=== PATIENT | male | born 1975 | race Caucasian/White ===

== ENCOUNTER 2020-07-05 11:05 | Observation (INO) | payer BC ==
[2020-07-04 13:51] VITALS: BMI 28.1
[~2020-07-05 11:05] MED LIST: DEXAMETHASONE SOD PHOSPHATE 10 MG/ML 1 ML VIAL IV ONE; LIDOCAINE 1% (10MG/ML) FOR IV START INTRADERMA PRN; ONDANSETRON 4 MG/2 ML VIAL IVP ONE; Pre Op ABX Message 1 EACH MISC MISCELLANE ONE; SCOPOLAMINE 1.5MG/72HR PATCH TRANSDERM ONE
[2020-07-05] MEDS: LACTATED RINGERS 1,000 ML IV SCH (12:11)
[2020-07-05] MEDS ORDERED: LIDOCAINE 1% INJ 10MG/ML (20 ML MDV) ONE (12:29)
[2020-07-05] MEDS ORDERED: GLYCOPYRROLATE 0.2 MG/ML 2 ML VIAL ONE (12:29)
[2020-07-05] MEDS ORDERED: PROPOFOL 10 MG/ML 20 ML VIAL IV ONE (12:29)
[2020-07-05] MEDS ORDERED: MIDAZOLAM 2 MG/2 ML VIAL ONE (12:29)
[2020-07-05] MEDS ORDERED: fentaNYL (PF) 50 MCG/ML 2 ML AMP ONE (12:29)
[2020-07-05] MEDS ORDERED: ePHEDrine SULFATE/0.9% NACL/PF 50 MG/5 ML SYRINGE IV ONE (12:29)
[2020-07-05] MEDS ORDERED: VANCOMYCIN IV PER PHARMACY 1 EACH MISC MISCELLANE STA (12:44)
[2020-07-05] MEDS ORDERED: VANCOMYCIN 1,750 MG in SODIUM CHLORIDE 0.9% 500 ML 500 ML IVPB STA (12:50)
[2020-07-05] MEDS ORDERED: NALOXONE 0.4 MG/ML 1 ML VIAL IV PRN (13:30)
[2020-07-05] MEDS ORDERED: traMADol 50 MG TAB PO PRN (13:30)
[2020-07-05] MEDS ORDERED: ONDANSETRON 4 MG/2 ML VIAL IVP PRN (13:30)
[2020-07-05] MEDS ORDERED: MELATONIN 3 MG TABLET PO PRN (13:30)
[2020-07-05] MEDS ORDERED: MORPHINE SULFATE 4 MG/ML SYRINGE IV PRN (13:30)
[2020-07-05] MEDS ORDERED: PIPERACILLIN-TAZOBACTAM 3.375 GM in SODIUM CHLORIDE 0.9% 100 ML IVPB SCH (13:45)
[2020-07-05] MEDS ORDERED: VANCOMYCIN IV PER PHARMACY 1 EACH MISC MISCELLANE SCH (13:45)
--- NOTE | 2020-07-05 13:52 | P.OP ---
Date of Procedure: 07/05/20 Procedure(s) Performed: PREOPERATIVE DIAGNOSES: 1. Pyogenic flexor tenosynovitis, third finger POSTOPERATIVE DIAGNOSES: 1. Pyogenic flexor tenosynovitis, third finger PROCEDURES PERFORMED: 1. Open irrigation flexor tendon sheath with run through irrigation, third finger ANESTHESIA: Local with IV sedation PSYCH SPECIALIST: . None COMPLICATIONS: None ESTIMATED BLOOD LOSS: 1 mL. DISPOSITION: To post-anesthesia care unit INDICATIONS: . Tobi is a 42-year-old male with a history of third finger pyogenic flexor tenosynovitis due to a traumatic injury approximately 4 days ago. This has been increasingly very painful and bothersome. He is only minimally better after initial treatment with oral antibiotics. Kanavel's signs are now present and I recommended open treatment of the flexor tendon sheath with flow through irrigation. The patient has signed the consent form and wishe s to proceed with surgery after full explanation of the risks and potential complications. I have explained these as being inclusive of, but not limited to: Bleeding, infection, scarring, discomfort, stiffness, blood vessel and/or nerve damage, continued infection, flexion contracture, and other risks. PROCEDURE: After appropriate consent was obtained, the patient was taken to the operating room placed in the supine position. Anesthesia was initiated, and after confirmation of adequate anesthesia, the patient was carefully positioned. Care was taken to make sure that all pressure points were adequately padded. Prepping and draping were completed in the usual aseptic fashion using Hibiclens. Timeout was called, confirming patient identity, side, procedure, and no administration of antibiotics until after culture was taken. The limb was exsanguinated with an Esmarch bandage and the tourniquet was inflated to 200 mmHg. Total tourniquet time for the case was approximately 25 minutes. The hand was positioned on a padded aluminum frame. Chevron/zigzag type incision approximately 6 cm in total length was created over the distal palmar crease in line with the third finger. The incision was taken down just through dermis, and then skin hooks were applied and blunt dissection was then carried down to the tendon sheath. The proximal portion of the flexor tendon was exposed in the area of previous penetration from traumatic wound was inspected and explored. No foreign bodies were noted. Tendon sheath was exposed medially and laterally and retractors were applied to retract neurovascular structures. The proximal extent of the A1 mg was noted and partially released under direct visualization using a number 15 blade. Pus from the tendon sheath was immediately noted. Cultures were taken. There was no significant underlying tendon damage. Counterincision was then performed distally at the DIP joint with a transverse incision across the crease. Incision was then deepened down to the tendon sheath which was incised medial to lateral which also revealed pus. Flow through irrigation was performed using a 14-gauge Angiocath from proximal to distal with good flow noted through the distal incision. Approximately 250 mL of fluid was irrigated through with dilute solution of chlorhexidine used initially, followed by flow through of plain sterile saline. Chevron incision was then closed loosely using interrupted 4-0 nylon sutures. Dressing was applied after irrigation and use of bipolar electrocautery for hemostasis. Resting volar splint was applied in a safe position for the hand with slight wrist extension and pressure was held over the incision for 3 minutes for additional hemostasis during splint hardening. Patient tolerated the procedure well and taken to recovery room in stable condition. Sponge and needle counts were correct.
[2020-07-05] MEDS: HYDROmorphone 0.5 MG/0.5 ML SYRINGE IVP PRN ×6 (13:56→14:13)
[2020-07-05 16:09] LABS: African American GFR (CKD) >90 (>60 ml/min/1.73 sqM); Non-African American GFR(CKD) 81 (>60 ml/min/1.73 sqM)
[2020-07-05] MEDS: VANCOMYCIN 1,750 MG in SODIUM CHLORIDE 0.9% 500 ML 500 ML IVPB SCH (22:35)
[2020-07-05] MEDS: CEFEPIME 2 GM in SODIUM CHLORIDE 0.9% 100 ML IVPB SCH (22:35)
[2020-07-06] MEDS: VANCOMYCIN 1,750 MG in SODIUM CHLORIDE 0.9% 500 ML 500 ML IVPB SCH ×3 (05:34→21:08)
[2020-07-06] MEDS: LACTATED RINGERS 1,000 ML IV SCH (06:47)
[2020-07-06 08:15] LABS: African American GFR (CKD) >90 (>60 ml/min/1.73 sqM); Non-African American GFR(CKD) 83 (>60 ml/min/1.73 sqM)
--- NOTE | 2020-07-06 08:15 | P.CONS ---
History of Present Illness - Reason for Consult Consult date: 07/05/20 Right third finger tenosynovitis Requesting physician: Roly Navas - Chief Complaint Right third finger pain redness x 2 days - History of Present Illness Patient is a 45-year-old male who did have injury to his right third finger while doing dishes a few days ago patient mention there was a cut at 2 location on the right third finger that started to bleed after he did have the injury patient said that he did that returned under the water and has been doing some local care however yesterday he noticed his third finger to be coming more swollen right and painful patient described the pain to be throbbing intensity almost 7-8 out of 10 and no radiation patient did have some chills but denies high-grade fever, with these symptoms the patient was evaluated by orthopedics, patient subsequently was taken to the OR with concern for pyogenic flexor tenosynovitis third finger. Diagnoses was the same patient is status post open irrigation flexor tendon sheath with a running 2 irrigation culture has been obtained which are currently pending patient was started on vancomycin and Zosyn has been admitted to the hospital infectious disease was consulted for further management of antibiotic therapy Review of Systems Positive point has been mentioned in the HPI rest of the systems are negative Past Medical History Past Medical History: GERD/Reflux, Osteoarthritis (OA), Sleep Apnea/CPAP/BIPAP Additional Past Medical History / Comment(s): injury 3rd digit rt hand,mild case of sleep apnea-no cpap yet, hx "COLLAPSED LUNG" IN HIS 20'S. BRADYCARDIA. History of Any Multi-Drug Resistant Organisms: None Reported Additional Past Surgical History / Comment(s): CHEST TUBE FOR "COLLAPSED LUNG". LOWER BACK INJECTIONS. Past Anesthesia/Blood Transfusion Reactions: No Reported Reaction, Motion Sickness Smoking Status: Never smoker - Past Family History Father Family Medical History: Hyperlipidemia Mother Family Medical History: Respiratory Disorder Additional Family Medical History / Comment(s): PSYCHIATRIC HISTORY. POLIO. Medications and Allergies Home Medications Medication Instructions Recorded Confirmed Type FLUoxetine HCL 40 mg PO HS 09/09/15 07/05/20 History Omeprazole [PriLOSEC] 40 mg PO DIRECTED PRN 09/09/15 07/05/20 History clonazePAM [KlonoPIN] 1.5 mg PO HS 09/09/15 07/05/20 History Acetaminophen [Tylenol Extra 500 - 1,000 mg PO Q6H PRN 07/04/20 07/05/20 History Strength] Sulfamethoxazole/Trimethoprim 1 each PO BID 07/04/20 07/05/20 History [Bactrim DS 800-160 mg] Allergies Allergy/AdvReac Type Severity Reaction Status Date / Time codeine AdvReac Severe Nausea & Verified 07/05/20 11:56 Vomiting Physical Exam Vitals: Vital Signs Temp Pulse Resp BP Pulse Ox 07/05/20 14:15 57 L 16 126/71 97 07/05/20 14:00 52 L 16 121/70 95 07/05/20 13:45 65 16 110/59 95 07/05/20 13:36 97.1 F L 61 12 116/70 95 07/05/20 12:09 98.6 F 57 L 16 122/60 99 Intake and Output 07/04/20 07/05/20 07/05/20 22:59 06:59 14:59 Intake Total 1000 Output Total 1 Balance 999 Intake: IV 1000 Output: Estimated Blood Loss 1 Other: Weight 112.4 kg GENERAL DESCRIPTION: Middle-aged male lying in bed, no distress. No tachypnea or accessory muscle of respiration use. HEENT: Shows Pallor , no scleral icterus. Oral mucous membrane is dry. No pharyngeal erythema or thrush NECK: Trachea central, no thyromegaly. LUNGS: Unlabored breathing. Clear to auscultation anteriorly. No wheeze or crackle. HEART: S1, S2, regular rate and rhythm. No loud murmur ABDOMEN: Soft, no tenderness , guarding or rigidity, no organomegaly EXTREMITIES: Right finger is currently dressed in OR dressing no drainage on the dressing SKIN: No rash, no masses palpable. NEUROLOGICAL: The patient is awake, alert, oriented x3, mood and affect normal. Results CBC & Chem 7: 07/05/20 15:47 Assessment and Plan Assessment: 1- patient presented to the hospital with right third finger pain swelling and redness started after the patient did have injury a few days ago with a cut from the dictations likely concerning for a gram-positive skin serjio underlying gram- negative infection less likely but not entirely excluded (1) Abscess of right hand including fingers Current Visit: Yes Status: Acute Code(s): L02.511 - CUTANEOUS ABSCESS OF RIGHT HAND SNOMED Code(s): 47762455844779977 Plan: 1- Vancomycin pharmacy to dose target trough of 15 while watching kidney function and Vanco trough closely 2-discontinue Zosyn and cefepime to cover for gram-negative 3-CBC BMP a sed rate and CRP We will follow on clinical condition and cultures to further adjust medication if needed Thank you for this consultation will follow this patient with you Time with Patient: Greater than 30
[2020-07-06] MEDS: CEFEPIME 2 GM in SODIUM CHLORIDE 0.9% 100 ML IVPB SCH ×2 (08:52→21:09)
[2020-07-06 08:54] LABS: Basophils % (A) 0 %; Eosinophils % (A) 0 %; HCT 42.7 % (39.0-53.0); HGB 14.2 gm/dL (13.0-17.5); Lymphocytes # (A) 1.4 k/uL (1.0-4.8); Lymphocytes % (A) 12 %; MCHC 33.2 g/dL (31.0-37.0); MCV 93.3 fL (80.0-100.0); Mean Platelet Volume 9.3; Monocytes # (A) 0.7 k/uL (0-1.0); Monocytes % (A) 6 %; Neutrophils # (A) 9.6 k/uL (1.3-7.7); Neutrophils % (A) 81 %; Platelet Count 155 k/uL (150-450); RBC 4.58 m/uL (4.30-5.90); RDW 12.7 % (11.5-15.5); WBC 11.9 k/uL (3.8-10.6)
[2020-07-06 09:01] LABS: African American GFR (CKD) >90 (>60 ml/min/1.73 sqM); Non-African American GFR(CKD) 83 (>60 ml/min/1.73 sqM)
[2020-07-06 09:09] LABS: Anion Gap 5 mmol/L; Blood Urea Nitrogen 14 mg/dL (9-20); Calcium 9.1 mg/dL (8.4-10.2); Carbon Dioxide 25 mmol/L (22-30); Chloride 106 mmol/L (98-107); Glucose 107 mg/dL (74-99); Potassium 4.6 mmol/L (3.5-5.1); Sodium 136 mmol/L (137-145)
[2020-07-06 09:29] LABS: C Reactive Protein 29.7 mg/L (<10.0)
[2020-07-06 09:42] LABS: Erythrocyte Sedimentation Rate 11 mm/hr (0-15)
--- NOTE | 2020-07-06 09:58 | P.PN ---
Subjective Progress Note Date: 07/06/20 This is a 45-year-old male who is status post I&D of the third finger for pyogenic flexor tenosynovitis. This is postoperative day #1 and patient is seen and evaluated at bedside. Patient states that his pain and swelling have greatly improved. Patient denies any new symptoms today. Objective - Vital Signs Vital signs: Vital Signs Temp 98.1 F 07/06/20 08:47 Pulse 51 L 07/06/20 08:47 Resp 16 07/06/20 08:47 BP 114/72 07/06/20 08:47 Pulse Ox 97 07/06/20 08:47 Intake & Output 07/05/20 07/06/20 07/06/20 18:59 06:59 18:59 Intake Total 1420 480 Output Total 1 Balance 1419 480 Weight 112.4 kg Intake: IV 1000 Oral 420 480 Output: Estimated Blood Loss 1 Other: Voiding Method Toilet Toilet # Voids 1 - Exam On exam patient is resting comfortably in bed in no acute distress. Patient is alert and oriented 3. Surgical dressing is removed. Sutures are intact. There is a moderate amount of bloody drainage on the dressing, but there is no active drainage. There is no erythema. There is mild swelling of the right hand. The right upper extremity is warm and well perfused. Sensation intact. Neurovascular status and circulatory status are intact. - Labs CBC & Chem 7: 07/06/20 07:50 07/06/20 07:50 Labs: Abnormal Lab Results - Last 24 Hours (Table) 07/06/20 07/06/20 Range/Units 07:50 07:50 WBC 11.9 H (3.8-10.6) k/uL Neutrophils # 9.6 H (1.3-7.7) k/uL Sodium 136 L (137-145) mmol/L Glucose 107 H (74-99) mg/dL C-Reactive Protein 29.7 H (<10.0) mg/L Microbiology - Last 24 Hours (Table) 07/05/20 13:17 Gram Stain - Preliminary Hand - Right Wound Culture - Preliminary 07/05/20 13:17 Anaerobic Culture - Preliminary Hand - Right Assessment and Plan (1) Status post incision and drainage Current Visit: Yes Status: Acute Code(s): Z98.890 - OTHER SPECIFIED POSTPROCEDURAL STATES SNOMED Code(s): 204784761 (2) Flexor tenosynovitis of finger Current Visit: Yes Status: Acute Code(s): M65.9 - SYNOVITIS AND TENOSYNOVITIS, UNSPECIFIED SNOMED Code(s): 779936883 (3) Abscess of right hand including fingers Current Visit: Yes Status: Acute Code(s): L02.511 - CUTANEOUS ABSCESS OF RIGHT HAND SNOMED Code(s): 60694410324299200 Plan: 1. Continue IV antibiotics per infectious disease. 2. Cultures are pending. 3. Recommend heat and elevation for the right upper extremity. 4. Consult occupational therapy for thermoplastic removable resting hand splint . 5. Continue routine postoperative care and pain control. 6. Discharge planning once antibiotics are determined by infectious disease.
[2020-07-06] MEDS ORDERED: PANTOPRAZOLE 40 MG TABLET PO PRN (15:02)
--- NOTE | 2020-07-06 19:42 | PN ---
PROGRESS NOTE DATE OF SERVICE: 07/06/2020 REASON FOR FOLLOWUP: Right 3rd finger infection. INTERVAL HISTORY: The patient is currently afebrile. The patient is feeling better, breathing comfortably. Overall pain and discomfort to the right 3rd finger, more when he keeps his hand down and with elevation the pain improves. No chest pain. No cough. No abdominal pain. No diarrhea. PHYSICAL EXAMINATION: Blood pressure 117/64 with a pulse of 53, temp is 97.6, he is 97% on room air. General description is a middle-aged male up in the bed in no distress. Respiratory system: Unlabored breathing, clear to auscultation anteriorly. Heart S1, S2. Regular rate and rhythm. Abdomen is soft, nontender. Right 3rd finger is currently dressed. No obvious drainage on the dressing. LABS: Hemoglobin 14.8, white count 11.9. CRP 29.7. Cultures currently pending. DIAGNOSTIC IMPRESSION AND PLAN: Patient with right 3rd finger injury from a glass cut with secondary cellulitis status post I and D. Cultures pending. Patient is covered with cefepime and vancomycin to continue while waiting for the culture to finalize. Continue supportive care. MMODL / IJN: [id number] /
[2020-07-06] MEDS ORDERED: clonazePAM 1 MG TAB PO SCH (21:00)
[2020-07-06] MEDS ORDERED: clonazePAM 0.5 MG TAB PO SCH (21:00)
[2020-07-06] MEDS ORDERED: FLUoxetine HCL 20 MG CAP PO SCH (21:00)
[2020-07-07] MEDS ORDERED: VANCOMYCIN TROUGH DUE 1 EACH MISC MISCELLANE ONE (04:00)
[2020-07-07 04:45] LABS: African American GFR (CKD) >90 (>60 ml/min/1.73 sqM); Non-African American GFR(CKD) 83 (>60 ml/min/1.73 sqM)
[2020-07-07] MEDS: VANCOMYCIN 1,750 MG in SODIUM CHLORIDE 0.9% 500 ML 500 ML IVPB SCH ×2 (05:28→12:34)
[2020-07-07 08:40] VITALS: RESP 16
[2020-07-07] MEDS: CEFEPIME 2 GM in SODIUM CHLORIDE 0.9% 100 ML IVPB SCH (08:49)
[2020-07-07] MEDS: LACTATED RINGERS 1,000 ML IV SCH (08:50)
--- NOTE | 2020-07-07 10:58 | P.PN ---
Subjective Progress Note Date: 07/07/20 This is a 45-year-old male who is status post I&D of the third finger for pyogenic flexor tenosynovitis. This is postoperative day #2 and patient is seen and evaluated at bedside. Patient states that his pain and swelling continued to improve. Patient denies any new symptoms today. Objective - Vital Signs Vital signs: Vital Signs Temp 98.0 F 07/07/20 08:39 Pulse 40 L 07/07/20 08:39 Resp 16 07/07/20 08:39 BP 141/80 07/07/20 08:39 Pulse Ox 96 07/07/20 03:00 Intake & Output 07/06/20 07/07/20 07/07/20 18:59 06:59 18:59 Intake Total 480 Balance 480 Intake: Oral 480 Other: Voiding Method Toilet # Voids 2 2 - Exam On exam patient is resting comfortably in bed in no acute distress. Patient is alert and oriented 3. Splint and dressing are removed. Sutures are intact. There is minimal drainage noted on the dressing. No active drainage. There is no erythema. There is minimal swelling of the right hand. The right upper extremity is warm and well perfused. Sensation intact. Neurovascular status and circulatory status are intact. - Labs CBC & Chem 7: 07/06/20 07:50 07/07/20 04:24 Labs: Microbiology - Last 24 Hours (Table) 07/05/20 13:17 Gram Stain - Final Hand - Right Wound Culture - Final Assessment and Plan (1) Status post incision and drainage Current Visit: Yes Status: Acute Code(s): Z98.890 - OTHER SPECIFIED POSTPROCEDURAL STATES SNOMED Code(s): 177551649 (2) Flexor tenosynovitis of finger Current Visit: Yes Status: Acute Code(s): M65.9 - SYNOVITIS AND TENOSYNOVITIS, UNSPECIFIED SNOMED Code(s): 393503489 (3) Abscess of right hand including fingers Current Visit: Yes Status: Acute Code(s): L02.511 - CUTANEOUS ABSCESS OF RIGHT HAND SNOMED Code(s): 17084615881341558 Plan: 1. Continue IV antibiotics per infectious disease. 2. No organisms seen on Gram stain. Preliminary cultures show no growth after 48 hours. 3. Recommend heat and elevation for the right upper extremity. 4. Consult occupational therapy for thermoplastic removable resting hand splint. May be obtained as an outpatient if this cannot be done as an inpatient over the weekend. 5. Continue routine postoperative care and pain control. Maintain splint to right hand. 6. Discharge planning once antibiotics are determined by infectious disease.
--- NOTE | 2020-07-07 14:51 | P.DS ---
Providers Date of admission: 07/06/20 12:57 Expected date of discharge: 07/07/20 Attending physician: Roly Navas Consults: 07/05/20 12:46 Consult Physician Urgent Consulting Provider: Sterling Bartlett Consult Reason/Comments: pyogenic flexor tenosynovitis, antibiotic recommendations Do you want consulting provider notified?: Yes Primary care physician: Wandy Dealher - Discharge Diagnosis(es) (1) Status post incision and drainage Current Visit: Yes Status: Acute (2) Flexor tenosynovitis of finger Current Visit: Yes Status: Acute (3) Abscess of right hand including fingers Current Visit: Yes Status: Acute Hospital Course: This is a 42-year-old male with a history of pyogenic flexor tenosynovitis of the third finger which he was receiving treatment as an outpatient for by Dr. Navas. Patient failed outpatient treatment and was admitted for open irrigation flexor tendon sheath with run through irrigation of the third finger. The procedure is performed on 07/05/[address] Navas. Procedure was performed without complication or sequelae. Patient's labs and vital signs are stable on day of discharge. Cultures are negative thus far. Infectious disease has evaluated the patient and is managing outpatient antibiotics. On day of discharge patient is resting comfortably in bed in no acute distress. Patient is alert and oriented 3. Splint and dressing are removed. Sutures are intact. There is minimal drainage noted on the dressing. No active drainage. There is no erythema. There is minimal swelling of the right hand. The right upper extremity is warm and well perfused. Sensation intact. Neurovascular status and circulatory status are intact. Patient is in good condition for discharge home. Plan - Discharge Summary Discharge Rx Participant: Yes New Discharge Prescriptions: New Cephalexin [Keflex] 500 mg PO Q6HR #30 cap No Action Omeprazole [PriLOSEC] 40 mg PO DIRECTED PRN PRN Reason: acid indigestion clonazePAM [KlonoPIN] 1.5 mg PO HS FLUoxetine HCL 40 mg PO HS Acetaminophen [Tylenol Extra Strength] 500 - 1,000 mg PO Q6H PRN PRN Reason: Pain Sulfamethoxazole/Trimethoprim [Bactrim DS 800-160 mg] 1 each PO BID Discharge Medication List FLUoxetine HCL 40 mg PO HS 09/09/15 [History] Omeprazole [PriLOSEC] 40 mg PO DIRECTED PRN 09/09/15 [History] clonazePAM [KlonoPIN] 1.5 mg PO HS 09/09/15 [History] Acetaminophen [Tylenol Extra Strength] 500 - 1,000 mg PO Q6H PRN 07/04/20 [History] Sulfamethoxazole/Trimethoprim [Bactrim DS 800-160 mg] 1 each PO BID 07/04/20 [History] Cephalexin [Keflex] 500 mg PO Q6HR #30 cap 07/07/20 [Rx] Follow up Appointment(s)/Referral(s): Roly Navas MD [STAFF PHYSICIAN] - 3 Days Activity/Diet/Wound Care/Special Instructions: Maintain clean and dry dressing along with resting hand splint. May obtain resting hand splint as an outpatient. Rest, heat and elevation for the right upper extremity. Ibuprofen as needed for pain. Please follow-up with [facility] in 3-5 days and call with any questions or concerns, . Discharge Disposition: HOME SELF-CARE
[2020-07-07 15:20] VITALS: BP 125/75; PULSE 52; TEMP 97.9
--- NOTE | 2020-07-07 16:10 | PN ---
PROGRESS NOTE DATE OF SERVICE: 07/07/2020 REASON FOR FOLLOW UP: Right third finger infection. INTERVAL HISTORY: Patient is currently afebrile. The patient overall is feeling better. Breathing comfortably. Pain and discomfort to the right third finger has improved. Denies having any chest pain, abdominal pain, no diarrhea and wants to go home. PHYSICAL EXAMINATION: Blood pressure is 141/80 with a pulse of 40, temperature of 98. He is 96% on room air. General description is a middle-aged male lying in bed in no distress. Respiratory system: Unlabored breathing, clear to auscultation anteriorly. Heart S1, S2. Regular rate and rhythm. Abdomen soft, no tenderness. Right third finger incision currently Minimal swelling, no redness, no drainage. LABS: White count of 20.8, creatinine 1.09. Culture has been negative. DIAGNOSTIC IMPRESSION AND PLAN: Patient with right third finger injury and secondary cellulitis status post operative repair. Culture has been negative so far and no significant inflammatory change was noticed. Patient wants to go home and a prescription of oral Keflex 500 mg p.o. q.6 hours for about a week and a close outpatient followup. MMODL / IJN: [id number] / MTDD
== END 2020-07-07 17:15 | disposition home or self-care (01) ==
LOC: OR 11:05 → 1SOBS 13:36 → OR 07-06 12:57
PROVIDERS: ADMIT Orthopaedic Surgery; ATTEND Orthopaedic Surgery
DX: M65.9 Synovitis and tenosynovitis, unspecified (principal); L02.511 Cutaneous abscess of right hand; S61.214S Laceration without foreign body of right ring finger without damage to nail, sequela
CPT/HCPCS: 26020; 93005; 88304; 80048; 85652; 82565 ×2; 85025; 80202; 86140; 87070; 87205; 87075; G0378 ×2; J2250; J3370 ×3; J1100; J2405; J2001; J0692 ×3; J3010; J2704; J1170

== ENCOUNTER 2023-03-21 18:37 | Emergency (ER) | payer BC ==
[2023-03-21 19:19] VITALS: RESP 18; TEMP 97.9
--- NOTE | 2023-03-21 20:15 | XR ---
EXAMINATION TYPE: XR ankle complete LT DATE OF EXAM: 03/21/2023 8:00 PM INDICATION: Patient age:Male; 48 years old; Reason for study: fall; COMPARISON: None TECHNIQUE: The left ankle is imaged in frontal, lateral and oblique projections. FINDINGS: There is no evidence of acute osseous pathology. The joint spaces are well-preserved without evidenc e of subluxation or dislocation. Kager's fat pad is intact. Minimal soft tissue swelling around the a nkle. No radiopaque foreign bodies are identified. Irregular morphology to the fibula diaphysis rui x which is partially in the the [id number]. IMPRESSION: 1. No evidence of acute fracture. 2. Minimal Subcutaneous swelling around the ankle likely secondary to underlying soft tissue injury. 3. Irregular cortex of the mid fibula diaphysis correlate for prior history of fracture.
[2023-03-21] MEDS ORDERED: DIPH,PERTUS(ACELL)TETVAC-LF 0.5 ML VIAL IM ONE (20:55)
--- NOTE | 2023-03-21 20:56 | ED ---
Lower Extremity Injury HPI - General Chief Complaint: Extremity Injury, Lower Stated Complaint: L Ankle Injury Time Seen by Provider: 03/21/23 20:46 Source: patient Mode of arrival: wheelchair - History of Present Illness Initial Comments: 48-year-old male presenting with chief complaint of right ankle injury. Patient states that he hit the ankle with a large cart at the grocery store. Patient has abrasion to the ankle. Unsure when his last tetanus was. Mild swelling noted. - Related Data Home Medications Medication Instructions Recorded Confirmed FLUoxetine HCL 40 mg PO HS 09/09/15 07/05/20 Omeprazole [PriLOSEC] 40 mg PO DIRECTED PRN 09/09/15 07/05/20 clonazePAM [KlonoPIN] 1.5 mg PO HS 09/09/15 07/05/20 Acetaminophen [Tylenol Extra 500 - 1,000 mg PO Q6H PRN 07/04/20 07/05/20 Strength] Sulfamethoxazole/Trimethoprim 1 each PO BID 07/04/20 07/05/20 [Bactrim DS 800-160 mg] Previous Rx's Medication Instructions Recorded Cephalexin [Keflex] 500 mg PO Q6HR #30 cap 07/07/20 Allergies Allergy/AdvReac Type Severity Reaction Status Date / Time codeine AdvReac Severe Nausea & Verified 03/21/23 19:16 Vomiting Review of Systems ROS Statement: Those systems with pertinent positive or pertinent negative responses have been documented in the HPI. ROS Other: All systems not noted in ROS Statement are negative. Past Medical History Past Medical History: GERD/Reflux, Osteoarthritis (OA), Sleep Apnea/CPAP/BIPAP Additional Past Medical History / Comment(s): injury 3rd digit rt hand,mild case of sleep apnea-no cpap yet, hx "COLLAPSED LUNG" IN HIS 20'S. BRADYCARDIA. History of Any Multi-Drug Resistant Organisms: None Reported Additional Past Surgical History / Comment(s): CHEST TUBE FOR "COLLAPSED LUNG". LOWER BACK INJECTIONS. Past Anesthesia/Blood Transfusion Reactions: No Reported Reaction, Motion Sickness Past Psychological History: Anxiety Smoking Status: Never smoker Past Alcohol Use History: None Reported Past Drug Use History: None Reported - Past Family History Father Family Medical History: Hyperlipidemia Mother Family Medical History: Respiratory Disorder Additional Family Medical History / Comment(s): PSYCHIATRIC HISTORY. POLIO. General Exam Limitations: no limitations General appearance: alert, in no apparent distress Head exam: Present: atraumatic, normocephalic, normal inspection Eye exam: Present: normal appearance, EOMI. Absent: scleral icterus, periorbital swelling Neck exam: Present: normal inspection, full ROM Right Ankle exam: Present: full ROM, tenderness, swelling, abrasion Neurovascular tendon exam: Present: no vascular compromise Neurological exam: Present: alert, oriented X3, CN II-XII intact Psychiatric exam: Present: normal affect, normal mood Skin exam: Present: abrasion Course Vital Signs 03/21/23 03/21/23 19:16 21:14 Temperature 97.9 F Pulse Rate 64 52 L Respiratory 18 18 Rate Blood Pressure 112/70 123/69 O2 Sat by Pulse 97 97 Oximetry Medical Decision Making - Medical Decision Making Was pt. sent in by a medical professional or institution (, PA, DOLLY OPERATOR, urgent care, hospital, or intermediate...) When possible be specific @ -No Did you speak to anyone other than the patient for history (EMS, parent, family, police, friend...)? What history was obtained from this source @ -No Did you review nursing and triage notes (agree or disagree)? Why? @ -I reviewed and agree with nursing and triage notes Were old charts reviewed (outside hosp., previous admission, EMS record, old EKG, old radiological studies, urgent care reports/EKG's, intermediate records)? Report findings @ -No old charts were reviewed Differential Diagnosis (chest pain, altered mental status, abdominal pain women, abdominal pain men, vaginal bleeding, weakness, fever, dyspnea, syncope, headache, dizziness, GI bleed, back pain, seizure, CVA, palpatations, mental health, musculoskeletal)? @ -Differential Musculoskeletal Muscular strain, contusion, ligament sprain, fracture, arthritis, septic arthritis, bursitis, cellulitis, muscle spasm, nerve compression, DVT, arterial occlusion, herpes zoster, electrolyte abnormality, tumor.... This is not meant to be in all inclusive list EKG interpreted by me (3pts min.). @ -As above X-rays interpreted by me (1pt min.). @ -X-rays negative for fracture or dislocation CT interpreted by me (1pt min.). @ -None done U/S interpreted by me (1pt. min.). @ -None done What testing was considered but not performed or refused? (CT, X-rays, U/S, labs)? Why? @ -None What meds were considered but not given or refused? Why? @ -None Did you discuss the management of the patient with other professionals (tiffani dueñas i.e., Dr., PA, DOLLY OPERATOR, lab, RT, psych nurse, manager social responsibility, manufacturing area manager, teacher, personnel training officer, family independence case manager)? Give summary @ -No Was smoking cessation discussed for >3mins.? @ -No Was critical care preformed (if so, how long)? @ -No Were there social determinants of health that impacted care today? How? (Homelessness, low income, unemployed, alcoholism, drug addiction, transportation, low edu. Level, literacy, decrease access to med. care, [facility], rehab)? @ -No Was there de-escalation of care discussed even if they declined (Discuss DNR or withdrawal of care, Hospice)? DNR status @ -No What co-morbidities impacted this encounter? (DM, HTN, Smoking, COPD, CAD, Cancer, CVA, ARF, Chemo, Hep., AIDS, mental health diagnosis, sleep apnea, morbid obesity)? @ -None Was patient admitted / discharged? Hospital course, mention meds given and route, prescriptions, significant lab abnormalities, going to OR and other pertinent info. @ -48-year-old male presenting with chief complaint of right ankle injury. Negative x-ray. Neurovascularly intact on exam. Abrasion noted to the ankle. Tetanus is updated. Educated on supportive management at home. Follow-up with PCP. Report back to ER with any new or worsening symptoms. Discussed return parameters and answered all questions. Patient conveyed verbal understanding and agreed to the plan. I discussed this case in detail with my attending Dr. Kelly Undiagnosed new problem with uncertain prognosis? @ -No Drug Therapy requiring intensive monitoring for toxicity (Heparin, Nitro, Insulin, Cardizem)? @ -No Were any procedures done? @ -No Diagnosis/symptom? @ -Ankle sprain Acute, or Chronic, or Acute on Chronic? @ -Acute Uncomplicated (without systemic symptoms) or Complicated (systemic symptoms)? @ -uncomplicated Side effects of treatment? @ -No Exacerbation, Progression, or Severe Exacerbation? @ -No Poses a threat to life or bodily function? How? (Chest pain, [place], [place], pneumonia, PE, COPD, DKA, ARF, appy, cholecystitis, CVA, Diverticulitis, Homicidal, Suicidal, threat to staff... and all critical care pts) @ -No Disposition Clinical Impression: Ankle sprain Disposition: HOME SELF-CARE Condition: Good Instructions (If sedation given, give patient instructions): Ankle Sprain (ED) Additional Instructions: Follow-up with PCP. Report back to ER with any new or worsening symptoms. Take Motrin and Tylenol stated for pain control. Rest, ice, compress, elevate ank le. Is patient prescribed a controlled substance at d/c from ED?: No Referrals: Wandy Camara MD [Primary Care Provider] - 1-2 days Time of Disposition: 20:56
[2023-03-21 21:16] VITALS: BP 123/69; PULSE 52
== END 2023-03-21 21:18 | disposition home or self-care (01) ==
LOC: EC 18:37
DX: S93.402A Sprain of unspecified ligament of left ankle, initial encounter (principal); K21.9 Gastro-esophageal reflux disease without esophagitis; M19.90 Unspecified osteoarthritis, unspecified site; G47.30 Sleep apnea, unspecified; F41.9 Anxiety disorder, unspecified; Z79.1 Long term (current) use of non-steroidal anti-inflammatories (NSAID); Z79.899 Other long term (current) drug therapy; Z88.5 Allergy status to narcotic agent; Z23 Encounter for immunization; W22.8XXA Striking against or struck by other objects, initial encounter
CPT/HCPCS: 90471; 90715; 99283

== ENCOUNTER → 2024-10-12 | Outpatient (CLI) | payer BC ==
--- NOTE | 2024-10-12 13:53 | CT ---
CT urogram HISTORY: Hematuria COMPARISON: None TECHNIQUE: Multiple axial images are obtained through the abdomen and pelvis before and after the une ventful administration of nonionic IV contrast material. Postcontrast delayed images were obtained FINDINGS: Lung bases are clear. On the pre-IV contrast images, there are no gallstones. There is a 5 mm nonobstructing calcification within the left kidney. The gallbladder is normal and there is no distention or biliary ductal dilata tion. There are no focal masses within the liver, pancreas, spleen or adrenal glands and there is no organo megaly. Kidneys excrete contrast promptly and symmetrically and there is no solid renal mass, hydronephrosis or filling defect within the renal collecting systems, ureters or urinary bladder. The bowel loops are normal in caliber and there is no dilatation or obstruction. No inflammatory mckeon ges are identified in the bowel wall or mesentery. There is no free intraperitoneal air or fluid. There is no pelvic mass, free fluid, abscess or adenopathy. There is marked prostatic hypertrophy The osseous structures are intact. IMPRESSION: 1. Nonobstructing 5 mm left renal cyst. No solid renal masses. 2. Marked prostatic hypertrophy. 3. No filling defects within the visualized portions of the renal collecting systems, ureters or urin nia bladder [facility], , 10/12/2024 1:51 PM
== END | disposition home or self-care (01) ==
LOC: RADCTMAIN 12:08
PROVIDERS: ATTEND Internal Medicine
DX: N28.1 Cyst of kidney, acquired (principal); N40.0 Benign prostatic hyperplasia without lower urinary tract symptoms; R31.9 Hematuria, unspecified
CPT/HCPCS: 74178; 74400; Q9967

== ENCOUNTER → 2024-10-25 | Day surgery (SDC) | payer BC ==
--- NOTE | 2024-10-24 11:12 | P.GSHP ---
History of Present Illness H&P Date: 10/24/24 49-year-old gentleman sent to see me because of hematuria. He had a CT scan that identified a larger prostate, a tiny stone in the left kidney but no distinct ureteral stone per the radiologist. The patient's history was that of abrupt onset of severe right lower quadrant and pelvic pain. He has had a stone and he stated it felt like that. When I saw him in the office he still a blood in the urine. There is no evidence of infection. The prostate we know is enlarged. I reviewed the CT scan and indeed I think there is a 4 mm stone in the distal ureter near the bladder that was read as a phlebolith. Given that he still having pain and hematuria the plan is for cystoscopy right ureteroscopy and probable laser lithotripsy. The films were reviewed with the patient. - Constitutional Constitutional: Denies chills, Denies fever - EENT Eyes: denies blurred vision, denies pain Ears, nose, mouth and throat: Denies headache, Denies sore throat - Cardiovascular Cardiovascular: Denies chest pain, Denies shortness of breath - Respiratory Respiratory: Denies cough, Denies 7 - Gastrointestinal Gastrointestinal: Denies abdominal pain, Denies diarrhea, Denies nausea, Denies vomiting - Genitourinary (Female) Genitourinary: Denies dysuria, Denies hematuria - Genitourinary (Male) Genitourinary: Denies dysuria, Denies hematuria - Musculoskeletal Musculoskeletal: Denies myalgias - Integumentary Integumentary: Denies pruritus, Denies rash - Neurological Neurological: Denies numbness, Denies weakness - Psychiatric Psychiatric: Denies anxiety, Denies depression - Endocrine Endocrine: Denies fatigue, Denies weight change Past Medical History Past Medical History: GERD/Reflux, Osteoarthritis (OA), Sleep Apnea/CPAP/BIPAP Additional Past Medical History / Comment(s): mild case of sleep apnea-no cpap yet, hx "COLLAPSED LUNG" IN HIS 20's, bradycardia usually 50-60bpm, heart monitor showed 30's at night - saw agricultural lender, kidney stones History of Any Multi-Drug Resistant Organisms: None Reported Past Surgical History: No Surgical Hx Reported Additional Past Surgical History / Comment(s): CHEST TUBE FOR "COLLAPSED LUNG". LOWER BACK INJECTION, Rt. hand surgery, dental surgery Past Anesthesia/Blood Transfusion Reactions: No Reported Reaction, Motion Sickness Past Psychological History: No Psychological Hx Reported Smoking Status: Never smoker Past Alcohol Use History: None Reported Past Drug Use History: None Reported - Past Family History Father Family Medical History: Hyperlipidemia Mother Family Medical History: Respiratory Disorder Additional Family Medical History / Comment(s): PSYCHIATRIC HISTORY. PRASHANTHO. Medications and Allergies Home Medications Medication Instructions Recorded Confirmed Type Omeprazole [PriLOSEC] 40 mg PO DIRECTED PRN 09/09/15 10/23/24 History clonazePAM [KlonoPIN] 1 mg PO HS 09/09/15 10/23/24 History Acetaminophen [Tylenol Extra 500 - 1,000 mg PO Q6H PRN 07/04/20 10/23/24 History Strength] Sertraline [Zoloft] 100 mg PO HS 10/23/24 10/23/24 History Tamsulosin [Flomax] 0.4 mg PO DAILY 10/23/24 10/23/24 History Zma - Zincmagvit B6 1 tab PO HS 10/23/24 History Allergies Allergy/AdvReac Type Severity Reaction Status Date / Time codeine AdvReac Severe Nausea & Verified 10/23/24 13:43 Vomiting Surgical - Exam - General well developed, well nourished, no distress - Eyes normal ocular movement, no icteric - ENT no hearing loss, no congestion - Neck no masses, trachea midline - Respiratory normal respiratory effort, clear to auscultation - Abdomen Abdomen: soft, non tender, no guarding, no rigid, no rebound - Integumentary no rash, no abnormal pigmentation - Neurologic no disoriented, no combative - Psychiatric oriented to time, oriented to person, oriented to place, speech is normal, memory intact Results - Imaging CT scan - abdomen: report reviewed, image reviewed CT scan - pelvis: report reviewed, image reviewed Assessment and Plan Assessment: Impression: Hematuria, right lower quadrant and penile pain, probable right ureteral stone on CT scan. Left tiny left renal stone Recommendations: Based on the historical and radiographic evidence for my review I will proceed with cystoscopy and right ureteroscopy to remove this ureteral stone. This has been discussed with the patient.
[~2024-10-25] MED LIST changes: -DEXAMETHASONE SOD PHOSPHATE 10 MG/ML 1 ML VIAL IV ONE; +HYDROmorphone 0.5 MG/0.5 ML SYRINGE IVP PRN; +LIDOCAINE 1% INJ 10MG/ML (20 ML MDV) ONE; +MIDAZOLAM 2 MG/2 ML VIAL IV PRN; +MIDAZOLAM 2 MG/2 ML VIAL ONE; -ONDANSETRON 4 MG/2 ML VIAL IVP ONE; +PROPOFOL 10 MG/ML 20 ML VIAL IV ONE; -Pre Op ABX Message 1 EACH MISC MISCELLANE ONE; -SCOPOLAMINE 1.5MG/72HR PATCH TRANSDERM ONE; +SUCCINYLCHOLINE CHLORIDE 200 MG/10 ML VIAL IV ONE; +fentaNYL (PF) 50 MCG/ML 2 ML AMP IV PRN; +fentaNYL (PF) 50 MCG/ML 2 ML AMP ONE
[2024-10-25] MEDS: IV FLUID CONTINUATION 1,000 ML IV ONE (06:48)
[2024-10-25] MEDS: LACTATED RINGERS 1,000 ML IV SCH (07:00)
[2024-10-25] MEDS: DEXAMETHASONE SOD PHOSPHATE 4 MG/ML 1 ML VIAL IV ONE (07:01)
[2024-10-25] MEDS: ONDANSETRON 4 MG/2 ML VIAL IVP ONE (07:01)
--- NOTE | 2024-10-25 07:03 | XR ---
EXAMINATION TYPE: XR KUB DATE OF EXAM: 10/25/2024 COMPARISON: CT urogram 10/12/2024 HISTORY: Right ureteral stone N20.1 TECHNIQUE: Single supine KUB image of the abdomen is obtained FINDINGS: Small bowel demonstrates no evidence for dilatation or air fluid levels. Gas and fecal material is seen in non-distended colon. No convincing evidence for pneumoperitoneum. No definitive renal or ureteral calculi identified however evaluation is limited due to overlying sto ol. Bilateral pelvic phleboliths. The lung bases are clear. The osseous structures are intact. IMPRESSION: 1. Overall nonobstructive bowel gas pattern. 2. No definitive renal or ureteral calculi identified however evaluation is limited due to overlying stool. [facility], , 10/25/2024 7:01 AM
[2024-10-25 07:06] LABS: HCT 44.8 % (39.0-53.0); HGB 15.3 gm/dL (13.0-17.5); MCH 30.6 pg (25.0-35.0); MCHC 34.1 g/dL (31.0-37.0); Mean Platelet Volume 8.5; Platelet Count 187 k/uL (150-450); RBC 4.98 m/uL (4.30-5.90); RDW 13.3 % (11.5-15.5); WBC 5.9 k/uL (3.8-10.6)
[2024-10-25 07:17] LABS: African American GFR (CKD) >90 (>60 ml/min/1.73 sqM); Anion Gap 8 mmol/L; Blood Urea Nitrogen 18 mg/dL (9-20); Calcium 9.6 mg/dL (8.4-10.2); Carbon Dioxide 24 mmol/L (22-30); Chloride 108 mmol/L (98-107); Glucose 92 mg/dL (74-99); Non-African American GFR(CKD) >90 (>60 ml/min/1.73 sqM); Sodium 140 mmol/L (137-145)
[2024-10-25] MEDS: GENTAMICIN 140 MG in SODIUM CHLORIDE 0.9% 100 ML IVPB PRN (07:45)
[2024-10-25] MEDS: AMPICILLIN 1,000 MG in SODIUM CHLORIDE 0.9% 50 ML IVPB PRN (07:45)
[2024-10-25] MEDS: IOPAMIDOL-370 100ML BTL MISCELLANE ONE (07:46)
[2024-10-25 08:26] VITALS: TEMP 97.1
--- NOTE | 2024-10-25 08:28 | P.OP ---
Date of Procedure: 10/25/24 Preoperative Diagnosis: Right ureteral stone with colic Postoperative Diagnosis: Same, stone passed, BPH Procedure(s) Performed: Cystoscopy, bilateral retrograde pyelograms, right ureteroscopy Anesthesia: BRANDI Surgeon: Viet Castellon Estimated Blood Loss (ml): 25 Pathology: none sent Condition: stable Disposition: PACU Indications for Procedure: The patient is 49. He presented with an acute onset of severe right lower quadrant and penile pain. He also had hematuria intermittently. Evaluated by his primary care and he had a CT scan that was read as normal other than a tiny stone in the left kidney. I saw the patient he was still having penile and pelvic pain. He had microscopic hematuria. I reviewed the CT scan. My opinion close review identified a distal ureteral stone on the right even though it was reported as negative. Given the history of pain, blood and the fact that there is a stone in the left kidney. And the decision to say that in the the calcification that was read as a phlebolith actually was a right ureteral stone. Because of the persistent discomfort he comes for right ureteroscopy and laser lithotripsy. He is still having pain intermittently this morning. Description of Procedure: Patient is brought to the operating suite. He was given a general anesthetic. Placed in lithotomy position with a sterile prep and drape. Cystoscopy Foroblique lens and 21 [place] sheath identifies a normal anterior throat. The prostate is very enlarged and obstructing, quite friable. On entering the bladder there is heavy trabeculation. Both ureteral orifices are identified. With an 8 cone-tip catheter a right retrograde pyelogram performed. There is no definite filling defect however the ureter is somewhat dilated and does not drain freely. I do a left retrograde pyelogram just to make sure there is nothing on the left side because of the rather central location of his discomfort subsequently. The left retrograde pyelogram is normal completely. The comparison on the left versus the right ureter is significant there is much more dilation on the right than the left so therefore I will do a ureteroscopy to make sure I am not missing any stone that is not obviously seen on the retrograde pyelogram. I passed the semirigid ureteroscope into the distal right ureter. There is some edema where I thought the stone had been based on the CT scan. I passed the scope all the way up into the proximal right ureter and then do pull out ureteroscopy and do not see any obvious stone other than some distal ureteral edema. At this juncture it is my impression that he probably passed a stone and this was the explanation of the hematuria and the pain and the dilated right versus left ureter. The bladder is drained the patient is awakened and returned to cover condition. He tolerated the procedure well and will be discharged home upon recovery and follow in the office in 1 week
[2024-10-25] MEDS: KETOROLAC 15 MG/ML 1 ML VIAL IVP STA (08:44)
--- NOTE | 2024-10-25 09:16 | FL ---
EXAMINATION TYPE: FL urography retrograde DATE OF EXAM: 10/25/2024 FLUOROSCOPY Bilateral cysto with Dr. Castellon 30.9 sec fluoro time .[id number] DAP 6 images saved LC [facility], , 10/25/2024 9:14 AM
[2024-10-25 09:41] VITALS: RESP 16
[2024-10-25 09:51] VITALS: BP 108/62; PULSE 46
== END | disposition home or self-care (01) ==
LOC: OR 05:53
PROVIDERS: ATTEND Urology
DX: N20.2 Calculus of kidney with calculus of ureter (principal); N40.0 Benign prostatic hyperplasia without lower urinary tract symptoms; N48.89 Other specified disorders of penis; K21.9 Gastro-esophageal reflux disease without esophagitis; G47.33 Obstructive sleep apnea (adult) (pediatric); M19.90 Unspecified osteoarthritis, unspecified site; Z98.890 Other specified postprocedural states; Z83.49 Family history of other endocrine, nutritional and metabolic diseases; Z99.89 Dependence on other enabling machines and devices; Z88.5 Allergy status to narcotic agent; Z79.899 Other long term (current) drug therapy
CPT/HCPCS: 80048; 85027; 74420; 74018; 52351; C1758; C1769; J2250; J0330; J1100; J2405; J2003; J3010; J1580; J0290; J1885; J2704; Q9967